=== PATIENT | male | born 1955 | race American Indian/Alaskan Native ===

== ENCOUNTER 2019-08-06 15:12 | Emergency (ER) | payer MEDICARE ==
--- NOTE | 2019-08-06 16:55 | Emergency Department Report ---
HPI - General Chief Complaint: Weakness PUI?: No Time Seen by Provider: 08/06/19 16:34 - HPI HPI: Room 2 The patient is a 63-year-old male present with chief complaint of weakness. The patient states he found himself urinating frequently last night. The patient states when he awakened this morning he felt profoundly weak. Patient admits to taking his hydralazine this morning. EMS was called when they arrived they state the patient was hypotensive to 80/50. Patient was transported to the ED. In the ED the patient is normotensive and states he feels better. Patient denies ever having chest pain shortness of breath melena or hematochezia ED Past Medical Hx - Past Medical History Previous Medical History?: Yes Hx Hypertension: Yes Hx GERD: Yes Additional medical history: SLEEP APNEA - Surgical History Past Surgical History?: No - Family History Family history: no significant - Social History Smoking Status: Current Every Day Smoker (Cigars) Substance Use Type: None (Denies illicit drug use), Alcohol (Occasional) - Medications Home Medications: Home Medications Medication Instructions Recorded Confirmed Last Taken Type Esomeprazole Magnesium [NexIUM] 40 mg PO QDAY #31 capsule. 02/27/15 Unknown Rx HYDROcodone/APAP 10-325 [[place] 1 each PO Q8HR PRN #15 tablet 02/27/15 Unknown Rx 10/325] Lisinopril/Hydrochlorothiazide 1 tab PO QDAY #31 tablet 02/27/15 Unknown Rx [Zestoretic 20-25 mg] Ciprofloxacin HCl [Ciprofloxacin 500 mg PO Q12HR #14 tab 08/06/19 Unknown Rx TAB] ED Review of Systems ROS: Stated complaint: LOW BP Other details as noted in HPI Constitutional: weakness Cardiovascular: denies: chest pain Gastrointestinal: denies: melena, hematochezia Physical Exam - Physical Exam Vital Signs: Vital Signs 08/06/19 08/06/19 15:13 15:59 Temperature 98.2 F Pulse Rate 65 Respiratory 16 18 Rate Blood Pressure 122/50 O2 Sat by Pulse 100 Oximetry Physical Exam: GENERAL: The patient is well-developed well-nourished male lying on stretcher not appearing to be in acute distress. [] HEENT: Normocephalic. Atraumatic. Extraocular motions are intact. Patient has moist mucous membranes. NECK: Supple. Trachea midline CHEST/LUNGS: Clear to auscultation. There is no respiratory distress noted. HEART/CARDIOVASCULAR: Regular. There is no tachycardia. There is no gallop rub or murmur. ABDOMEN: Abdomen is soft. Patient has normal bowel sounds. There is no abdominal distention. SKIN: There is no rash. There is no edema. There is no diaphoresis. NEURO: The patient is awake, alert, and oriented. The patient is cooperative. The patient has no focal neurologic deficits. The patient has normal speech. Cranial nerves II through XII grossly intact MUSCULOSKELETAL: There is no evidence of acute injury. ED Course Vital Signs 08/06/19 08/06/19 15:13 15:59 Temperature 98.2 F Pulse Rate 65 Respiratory 16 18 Rate Blood Pressure 122/50 O2 Sat by Pulse 100 Oximetry ED Medical Decision Making - Lab Data Result diagrams: 08/06/19 16:52 08/06/19 16:52 Laboratory Tests 08/06/19 08/06/19 08/06/19 15:30 16:52 16:52 WBC 13.8 H RBC 5.29 H Hgb 13.6 Hct 42.8 MCV 81 L MCH 26 L MCHC 32 RDW 17.5 H Plt Count 161 Lymph % (Auto) 5.6 L [place] % (Auto) 6.6 Eos % (Auto) 0.2 Baso % (Auto) 0.3 Lymph # 0.8 L [place] # 0.9 H Eos # 0.0 Baso # 0.0 Seg Neutrophils % 87.3 H Seg Neutrophils # 12.1 H Sodium 138 Potassium 3.9 Chloride 98.8 Carbon Dioxide 21 L Anion Gap 22 BUN 11 Creatinine 1.8 H Estimated GFR 46 BUN/Creatinine Ratio 6 Glucose 102 H POC Glucose 128 H Calcium 9.1 Total Bilirubin 0.30 AST 14 ALT 10 Alkaline Phosphatase 87 Total Creatine Kinase 125 CK-MB (CK-2) 3.8 CK-MB (CK-2) Rel Index 3.0 Troponin T 0.013 Total Protein 6.8 Albumin 4.2 Albumin/Globulin Ratio 1.6 TSH Free T4 Urine Color Urine Turbidity Urine pH Ur Specific Allen Urine Protein Urine Glucose (UA) Urine Ketones Urine Blood Urine Nitrite Urine Bilirubin Urine Urobilinogen Ur Leukocyte Esterase Urine WBC (Auto) Urine RBC (Auto) U Epithel Cells (Auto) Urine Mucus 05/30/20 05/30/20 16:52 18:00 WBC RBC Hgb Hct MCV MCH MCHC RDW Plt Count Lymph % (Auto) [place] % (Auto) Eos % (Auto) Baso % (Auto) Lymph # [place] # Eos # Baso # Seg Neutrophils % Seg Neutrophils # Sodium Potassium Chloride Carbon Dioxide Anion Gap BUN Creatinine Estimated GFR BUN/Creatinine Ratio Glucose POC Glucose Calcium Total Bilirubin AST ALT Alkaline Phosphatase Total Creatine Kinase CK-MB (CK-2) CK-MB (CK-2) Rel Index Troponin T Total Protein Albumin Albumin/Globulin Ratio TSH 1.060 Free T4 1.54 H Urine Color Yellow Urine Turbidity Slightly-cloudy Urine pH 8.0 H Ur Specific Allen 1.006 Urine Protein 100 mg/dl Urine Glucose (UA) 50 Urine Ketones Neg Urine Blood Neg Urine Nitrite Neg Urine Bilirubin Neg Urine Urobilinogen < 2.0 Ur Leukocyte Esterase Neg Urine WBC (Auto) 7.0 H Urine RBC (Auto) 1.0 U Epithel Cells (Auto) 1.0 Urine Mucus Few - Differential Diagnosis Orthostatic hypotension, hypothyroidism, symptomatic anemia, electrolyte ab Critical care attestation.: If time is entered above; I have spent that time in minutes in the direct care of this critically ill patient, excluding procedure time. ED Disposition Clinical Impression: UTI (urinary tract infection), Renal insufficiency Disposition: DC- TO HOME OR SELFCARE Is pt being admited?: No Does the pt Need Aspirin: No Condition: Stable Additional Instructions: Return to the emergency department should you develop worsening symptoms, inability to tolerate food or liquids, high fever or any other concerns Prescriptions: Ciprofloxacin HCl [Ciprofloxacin TAB] 500 mg PO Q12HR #14 tab Referrals: [facility] [Provider Group] - 3-5 Days SANDRA JAMA MD [Staff Physician] - 2-3 Days (Dr. Jama is a home management supervisor (kidney doctor). Please follow-up with him for further evaluation of your kidneys) LUÍS VERMA MD [Staff Physician] - 3-5 Days (Dr. Verma is a primary physician. Please follow-up with him to be established as a patient) Time of Disposition: 18:48
[2019-08-06 17:20] LABS: Basophils % (Auto) 0.3 % (0.0-1.8); Eosinophils % (Auto) 0.2 % (0.0-4.3); Hematocrit 42.8 % (35.5-45.6); Hemoglobin 13.6 gm/dl (11.8-15.2); Lymphocytes # (Auto) 0.8 K/mm3 (1.2-5.4); Lymphocytes % (Auto) 5.6 % (13.4-35.0); Mean Corpuscular HGB Conc 32 % (32-34); Mean Corpuscular Volume 81 fl (84-94); Monocytes # (Auto) 0.9 K/mm3 (0.0-0.8); Monocytes % (Auto) 6.6 % (0.0-7.3); Platelet Count 161 K/mm3 (140-440); Red Blood Count 5.29 M/mm3 (3.65-5.03); Red Cell Distribution Width 17.5 % (13.2-15.2)
[2019-08-06 17:29] LABS: Creatine Kinase MB 3.8 ng/mL (0.0-4.0)
[2019-08-06 17:30] LABS: Albumin 4.2 g/dL (3.9-5); Calcium 9.1 mg/dL (8.4-10.2)
[2019-08-06 17:35] LABS: Free T4 (Free Thyroxine) 1.54 ng/dL (0.76-1.46)
[2019-08-06 18:09] VITALS: BP 144/78
[2019-08-06 18:14] LABS: Bilirubin,Urine NEG (Negative); Blood,Urine NEG (Negative); Color,Urine Yellow (Yellow); Mucus,Urine FEW /HPF; Urobilinogen,Urine < 2.0 mg/dL (<2.0)
== END 2019-08-06 19:09 | disposition home or self-care (01) ==
LOC: ED 15:12
DX: N28.9 Disorder of kidney and ureter, unspecified (principal); N39.0 Urinary tract infection, site not specified; I10 Essential (primary) hypertension; K21.9 Gastro-esophageal reflux disease without esophagitis; F17.200 Nicotine dependence, unspecified, uncomplicated; Z88.2 Allergy status to sulfonamides; Z79.899 Other long term (current) drug therapy; Z88.0 Allergy status to penicillin
CPT/HCPCS: 36415; 80053; 81001; 82550; 82553; 82962; 84439; 84443; 84484; 85025; 93005; 99283

== ENCOUNTER 2019-09-27 10:54 | Emergency (ER) | payer MEDICARE ==
[2019-09-27 13:07] LABS: Basophils # (Auto) 0.1 K/mm3 (0.0-0.1); Basophils % (Auto) 1.1 % (0.0-1.8); Eosinophils # (Auto) 0.4 K/mm3 (0.0-0.4); Eosinophils % (Auto) 4.7 % (0.0-4.3); Hematocrit 35.3 % (35.5-45.6); Hemoglobin 11.8 gm/dl (11.8-15.2); Lymphocytes # (Auto) 1.4 K/mm3 (1.2-5.4); Lymphocytes % (Auto) 16.3 % (13.4-35.0); Mean Corpuscular HGB Conc 33 % (32-34); Mean Corpuscular Volume 84 fl (84-94); Monocytes # (Auto) 0.7 K/mm3 (0.0-0.8); Monocytes % (Auto) 7.7 % (0.0-7.3); Platelet Count 204 K/mm3 (140-440); Red Blood Count 4.22 M/mm3 (3.65-5.03); Red Cell Distribution Width 16.4 % (13.2-15.2)
--- NOTE | 2019-09-27 13:26 | Ultrasound Report ---
US testicular doppler comp INDICATION / CLINICAL INFORMATION: testicular pain. COMPARISON: None available. FINDINGS: There is a 2 cm cyst in the very inferior aspect of the right testicle. This appears to be an intrate sticular cyst. Right testicle and right epididymis are otherwise unremarkable Left testicle contains 2 much smaller cysts, the larger measuring 8 mm maximum diameter. Color Doppler imaging shows normal vascular flow in both testicles. There are bilateral hydroceles, m inimal on the right and moderate-sized on the left. Moderate left varicocele is also demonstrated. No abnormal solid testicular mass. IMPRESSION: 1. Bilateral intratesticular cysts, larger on the right. 2. Bilateral hydroceles, minimal on the right and moderate-sized on the left. 3. Small to moderate left varicocele. 4. No solid testicular masses. Signer Name: Dontae Gasca MD Signed: 09/27/2019 1:22 PM Workstation Name: [id number]
[2019-09-27 13:44] LABS: Alanine Aminotransferase 9 units/L (7-56); Albumin 4.2 g/dL (3.9-5); BUN/Creatinine Ratio 12; Blood Urea Nitrogen 15 mg/dL (9-20); Calcium 8.8 mg/dL (8.4-10.2); Hemolysis Index 11
[2019-09-27] MEDS ORDERED: HYDROcodone/ACETAMINOPHEN 5-325 MG TAB PO ONE (18:42)
--- NOTE | 2019-09-27 19:10 | Emergency Department Report ---
ED Abdominal Pain HPI - General Chief Complaint: Medical Clearance Stated Complaint: PAIN/ABD/TESTICLE/RT FOOT PUI?: No Time Seen by Provider: 09/27/19 11:37 Source: patient Mode of arrival: Ambulatory Limitations: No Limitations - History of Present Illness Initial Comments: This is a 64-year-old male presents the ED complaining of scrotum pain that began yesterday. Patient states that he has had pain for about a week now where he had ultrasound that was normal. Patient also complaining of abdominal pain stating that he saw some brown-tinged blood in his stool today. Patient denies any nausea vomiting or diarrhea, fever, chills, chest pain, shortness of breath, dysuria, penile discharge or swelling of the testicles or lesions MD Complaint: abdominal pain Severity scale (0 -10): 10 - Related Data Previous Rx's Medication Instructions Recorded Last Taken Type Esomeprazole Magnesium [NexIUM] 40 mg PO QDAY #31 capsule. 02/27/15 Unknown Rx HYDROcodone/APAP 10-325 [[place] 1 each PO Q8HR PRN #15 tablet 02/27/15 Unknown Rx 10/325] Lisinopril/Hydrochlorothiazide 1 tab PO QDAY #31 tablet 02/27/15 Unknown Rx [Zestoretic 20-25 mg] Ciprofloxacin HCl [Ciprofloxacin 500 mg PO Q12HR #14 tab 08/06/19 Unknown Rx TAB] Acetaminophen/Codeine [Tylenol 1 tab PO Q6H #10 tab 09/27/19 Unknown Rx /Codeine # 3 tab] Allergies Allergy/AdvReac Type Severity Reaction Status Date / Time Penicillins AdvReac Unknown Verified 06/30/14 07:13 Sulfa (Sulfonamide AdvReac Unknown Verified 06/30/14 07:13 Antibiotics) ED Review of Systems ROS: Stated complaint: PAIN/ABD/TESTICLE/RT FOOT Other details as noted in HPI Comment: All other systems reviewed and negative ED Past Medical Hx - Past Medical History Previous Medical History?: Yes Hx Hypertension: Yes Hx GERD: Yes Additional medical history: SLEEP APNEA - Surgical History Past Surgical History?: No - Social History Smoking Status: Current Every Day Smoker (Cigars) Substance Use Type: None (Denies illicit drug use), Alcohol (Occasional) - Medications Home Medications: Home Medications Medication Instructions Recorded Confirmed Last Taken Type Esomeprazole Magnesium [NexIUM] 40 mg PO QDAY #31 capsule. 02/27/15 Unknown Rx HYDROcodone/APAP 10-325 [[place] 1 each PO Q8HR PRN #15 tablet 02/27/15 Unknown Rx 10/325] Lisinopril/Hydrochlorothiazide 1 tab PO QDAY #31 tablet 02/27/15 Unknown Rx [Zestoretic 20-25 mg] Ciprofloxacin HCl [Ciprofloxacin 500 mg PO Q12HR #14 tab 08/06/19 Unknown Rx TAB] Acetaminophen/Codeine [Tylenol 1 tab PO Q6H #10 tab 09/27/19 Unknown Rx /Codeine # 3 tab] ED Physical Exam - General Limitations: No Limitations General appearance: alert, in no apparent distress - Head Head exam: Present: atraumatic, normocephalic - Eye Eye exam: Present: normal appearance - ENT ENT exam: Present: mucous membranes moist - Neck Neck exam: Present: normal inspection - Respiratory Respiratory exam: Present: normal lung sounds bilaterally. Absent: respiratory distress - Cardiovascular Cardiovascular Exam: Present: regular rate, normal rhythm. Absent: systolic m urmur, diastolic murmur, rubs, gallop - GI/Abdominal GI/Abdominal exam: Present: soft, normal bowel sounds. Absent: distended, tenderness, guarding, mass - Rectal Rectal exam: Present: deferred, normal inspection, normal rectal tone, heme (-) stool - exam: Present: testicular tenderness (Mild bilateral). Absent: urethral discharge, scrotal swelling External exam: Absent: lesions, bleeding - Extremities Exam Extremities exam: Present: normal inspection, full ROM - Back Exam Back exam: Present: normal inspection - Neurological Exam Neurological exam: Present: alert, oriented X3 - Psychiatric Psychiatric exam: Present: normal affect, normal mood - Skin Skin exam: Present: warm, dry, intact, normal color. Absent: rash ED Medical Decision Making - Lab Data Result diagrams: 09/27/19 11:57 09/27/19 11:57 Laboratory Last Values WBC 8.8 K/mm3 (4.5-11.0) 09/27/19 11:57 RBC 4.22 M/mm3 (3.65-5.03) 09/27/19 11:57 Hgb 11.8 gm/dl (11.8-15.2) 09/27/19 11:57 Hct 35.3 % (35.5-45.6) L 09/27/19 11:57 MCV 84 fl (84-94) 09/27/19 11:57 MCH 28 pg (28-32) 09/27/19 11:57 MCHC 33 % (32-34) 09/27/19 11:57 RDW 16.4 % (13.2-15.2) H 09/27/19 11:57 Plt Count 204 K/mm3 (140-440) 09/27/19 11:57 Lymph % (Auto) 16.3 % (13.4-35.0) 09/27/19 11:57 [place] % (Auto) 7.7 % (0.0-7.3) H 09/27/19 11:57 Eos % (Auto) 4.7 % (0.0-4.3) H 09/27/19 11:57 Baso % (Auto) 1.1 % (0.0-1.8) 09/27/19 11:57 Lymph # 1.4 K/mm3 (1.2-5.4) 09/27/19 11:57 [place] # 0.7 K/mm3 (0.0-0.8) 09/27/19 11:57 Eos # 0.4 K/mm3 (0.0-0.4) 09/27/19 11:57 Baso # 0.1 K/mm3 (0.0-0.1) 09/27/19 11:57 Seg Neutrophils % 70.2 % (40.0-70.0) H 09/27/19 11:57 Seg Neutrophils # 6.1 K/mm3 (1.8-7.7) 09/27/19 11:57 PT 12.8 Sec. (12.2-14.9) 09/27/19 18:48 INR 0.94 (0.87-1.13) 09/27/19 18:48 APTT 29.9 Sec. (24.2-36.6) 09/27/19 18:48 Sodium 142 mmol/L (137-145) 09/27/19 11:57 Potassium 4.2 mmol/L (3.6-5.0) 09/27/19 11:57 Chloride 106.3 mmol/L (98-107) 09/27/19 11:57 Carbon Dioxide 22 mmol/L (22-30) 09/27/19 11:57 Anion Gap 18 mmol/L 09/27/19 11:57 BUN 15 mg/dL (9-20) 09/27/19 11:57 Creatinine 1.3 mg/dL (0.8-1.5) 09/27/19 11:57 Estimated GFR > 60 ml/min 09/27/19 11:57 BUN/Creatinine Ratio 12 % 09/27/19 11:57 Glucose 97 mg/dL (75-100) 09/27/19 11:57 Calcium 8.8 mg/dL (8.4-10.2) 09/27/19 11:57 Total Bilirubin 0.30 mg/dL (0.1-1.2) 09/27/19 11:57 AST 10 units/L (5-40) 09/27/19 11:57 ALT 9 units/L (7-56) 09/27/19 11:57 Alkaline Phosphatase 90 units/L (35-129) 09/27/19 11:57 Total Protein 6.6 g/dL (6.3-8.2) 09/27/19 11:57 Albumin 4.2 g/dL (3.9-5) 09/27/19 11:57 Albumin/Globulin Ratio 1.8 % 09/27/19 11:57 Urine Color Straw (Yellow) 09/27/19 18:42 Urine Turbidity Clear (Clear) 09/27/19 18:42 Urine pH 7.0 (5.0-7.0) 09/27/19 18:42 Ur Specific Jet 1.011 (1.003-1.030) 09/27/19 18:42 Urine Protein <15 mg/dl mg/dL (Negative) 09/27/19 18:42 Urine Glucose (UA) Neg mg/dL (Negative) 09/27/19 18:42 Urine Ketones Neg mg/dL (Negative) 09/27/19 18:42 Urine Blood Neg (Negative) 09/27/19 18:42 Urine Nitrite Neg (Negative) 09/27/19 18:42 Urine Bilirubin Neg (Negative) 09/27/19 18:42 Urine Urobilinogen < 2.0 mg/dL (<2.0) 09/27/19 18:42 Ur Leukocyte Esterase Neg (Negative) 07/21/20 18:42 Urine WBC (Auto) < 1.0 /HPF (0.0-6.0) 09/27/19 18:42 Urine RBC (Auto) 2.0 /HPF (0.0-6.0) 09/27/19 18:42 - Radiology Data Radiology results: report reviewed, image reviewed ABDOMEN 2 VIEW(S) INDICATION / CLINICAL INFORMATION: MAIN. COMPARISON: None available. FINDINGS: TUBES / LINES: None. BOWEL GAS PATTERN: Scattered colonic stool. No significant bowel distention or free air. ADDITIONAL FINDINGS: No significant additional findings. IMPRESSION: No significant abnormality. Signer Name: Mohan Chowdhury MD Signed: 09/27/2019 8:02 PM Workstation Name: [id number] Transcribed By: ES Dictated By: Mohan Chowdhury MD Electronically Authenticated By: Mohan Chowdhury MD Signed Date/Time: 09/27/192001 US testicular doppler comp INDICATION / CLINICAL INFORMATION: testicular pain. COMPARISON: None available. FINDINGS: There is a 2 cm cyst in the very inferior aspect of the right testicle. This appears to be an intratesticular cyst. Right testicle and right epididymis are otherwise unremarkable Left testicle contains 2 much smaller cysts, the larger measuring 8 mm maximum diameter. Color Doppler imaging shows normal vascular flow in both testicles. There are bilateral hydroceles, minimal on the right and moderate-sized on the left. Moderate left varicocele is also demonstrated. No abnormal solid testicular mass. IMPRESSION: 1. Bilateral intratesticular cysts, larger on the right. 2. Bilateral hydroceles, minimal on the right and moderate-sized on the left. 3. Small to moderate left varicocele. 4. No solid testicular masses. Signer Name: Dontae Gasca MD Signed: 09/27/2019 1:22 PM Workstation Name: [id number] Transcribed By: TM Dictated By: Dontae Gasca MD Electronically Authenticated By: Dontae Gasca MD Signed Date/Time: 09/27/19 1322 - Medical Decision Making This 64-year-old male presents with an episode of blood in stool. Patient also complained of testicular pain most likely secondary to testicular cysts which ar e benign. All labs are within normal limits urinalysis negative, testicular ultrasound see report above. Abdominal x-ray sounds shows no abnormal findings. I discussed all findings with the patient. Patient received pain medication in the ED. I discussed with patient need to follow-up with GI as well as urology. Referrals given to patient. Vital signs are stable patient is in no acute discharge Critical care attestation.: If time is entered above; I have spent that time in minutes in the direct care of this critically ill patient, excluding procedure time. ED Disposition Clinical Impression: Benign cyst of both testicles, Blood in stool, Hydrocele in adult Disposition: DC-01 TO HOME OR SELFCARE Is pt being admited?: No Does the pt Need Aspirin: No Condition: Stable Instructions: Hydrocele (ED), Testicle Pain (ED), Colonoscopy (GEN) Additional Instructions: Make sure to follow up with the primary care physician as discussed. Follow-up with urologist as well as GI Take all your medications as you've been prescribed. If you have any worsening symptoms or develop new symptoms please return to ED immediately. Prescriptions: Acetaminophen/Codeine [Tylenol /Codeine # 3 tab] 1 tab PO Q6H #10 tab Referrals: PRIMARY CAREMD [Primary Care Provider] - 3-5 Days [facility] [Outside] - 3-5 Days [facility] [Provider Group] - 3-5 Days [facility] [Provider Group] - 3-5 Days OWEN SIMON MD [Staff Physician] - 3-5 Days [facility] [Provider Group] - 3-5 Days Forms: Work/School Release Form(ED) Time of Disposition: 20:59
[2019-09-27 19:24] LABS: INR 0.94 (0.87-1.13)
[2019-09-27 19:25] LABS: Partial Thromboplastin Time 29.9 Sec. (24.2-36.6)
[2019-09-27 19:32] LABS: Bilirubin,Urine NEG (Negative); Blood,Urine NEG (Negative); Color,Urine Straw (Yellow); Protein,Urine <15 mg/dL mg/dL (Negative); Urobilinogen,Urine < 2.0 mg/dL (<2.0)
[2019-09-27 19:37] LABS: WBC,Urine < 1.0 /HPF (0.0-6.0)
--- NOTE | 2019-09-27 20:07 | XRay Report ---
ABDOMEN 2 VIEW(S) INDICATION / CLINICAL INFORMATION: MAIN. COMPARISON: None available. FINDINGS: TUBES / LINES: None. BOWEL GAS PATTERN: Scattered colonic stool. No significant bowel distention or free air. ADDITIONAL FINDINGS: No significant additional findings. IMPRESSION: No significant abnormality. Signer Name: Mohan Chowdhury MD Signed: 09/27/2019 8:02 PM Workstation Name: [id number]
[2019-09-27 21:14] VITALS: BP 115/78
== END 2019-09-27 21:14 | disposition home or self-care (01) ==
LOC: ED 10:54
DX: N44.2 Benign cyst of testis (principal); K92.1 Melena; N43.3 Hydrocele, unspecified; I10 Essential (primary) hypertension; K21.9 Gastro-esophageal reflux disease without esophagitis; F17.200 Nicotine dependence, unspecified, uncomplicated; Z79.899 Other long term (current) drug therapy; Z88.0 Allergy status to penicillin; Z88.2 Allergy status to sulfonamides
CPT/HCPCS: 36415; 74019; 80053; 81001; 85025; 85610; 85730; 93975

== ENCOUNTER 2020-05-12 08:45 | Emergency (ER) | payer MEDICARE, OTHER ==
[2020-05-12] MEDS ORDERED: SODIUM CHLORIDE 0.9% 500 ML 500 ML IV ONE (08:51)
[2020-05-12] MEDS ORDERED: PANTOPRAZOLE 40 MG INJ IV ONE (08:52)
[2020-05-12] MEDS ORDERED: SODIUM CHLORIDE 0.9% 1000 ML 1,000 ML IV ONE (08:53)
--- NOTE | 2020-05-12 09:32 | Emergency Department Report ---
ED GI Bleed HPI - General Stated complaint: POSS GI BLEED Time Seen by Provider: 05/12/20 08:51 - History of Present Illness Initial comments: 64-year old male with conspicuous signs of upper GI bleeding. Medics notified the hospital of his findings in the field. They found the patient to be diaphoretic without palpable radial pulses but able to answer questions. According to medics he had "2 to 3 L of coffee grounds and blood on the floor." They initiated to antecubital IVs and stated they initiated a 1 L bolus. However, neither IV was ultimately functional per the nurse. I requested O- blood on the basis of the above history. This emergency transfusion was started shortly after the patient's arrival. The nurse stated that the ID in the right antecubital was infiltrating upon transfusion. He initiated 2 additional IVs distal to these upper extremity sites. Transfusion was successfully in progress shortly thereafter. I assisted the staff and drawing blood. I placed an 18- gauge Y site in the patient's right external jugular vein without difficulty. At the time my initial encounter, the patient was complaining of some diffuse bu t apparently mild abdominal pain. He is rather poor historian. He initially states he has never been transfused before and has no history of upper GI bleeding. However I obtain his prior medical history from Dr. Hawkins. This reveals an admission 05/2018 for hypoxic respiratory failure associated with gastric ulcer x2, esophageal erosion, aspiration and sepsis. Patient did not have surgical intervention at that time. All the patient could tell me is that he was in a "acute coma" for 19 days. Additionally, the patient tells me that he has been having normal bowel movements since the onset of this GI bleeding which he states was last Thursday. However, upon further questioning he admits that the stool has been black. complaint: coffee ground emesis, melena -: days(s) Radiation: epigastric (And diffuse) Quality: other (Aching) Consistency: constant Improves with: none Worsens with: none Context: history of GI bleed Associated Symptoms: denies other symptoms, abdominal pain, nausea, vomiting, shortness of breath Treatments Prior to Arrival: OTC meds (Nexium) - Related Data Home Medications Medication Instructions Recorded Confirmed Last Taken Meloxicam [Mobic] 15 mg PO QDAY 05/12/20 05/12/20 Unknown amLODIPine [Norvasc] 10 mg PO DAILY 05/12/20 05/12/20 Unknown traZODone [Desyrel] 100 mg PO QHS 05/12/20 05/12/20 Unknown Allergies Allergy/AdvReac Type Severity Reaction Status Date / Time Penicillins AdvReac Unknown Verified 06/30/14 07:13 Sulfa (Sulfonamide AdvReac Unknown Verified 06/30/14 07:13 Antibiotics) ED Review of Systems ROS: Stated complaint: POSS GI BLEED Other details as noted in HPI Comment: Unobtainable due to pts medical conditions (Very poor historian, hypotensive patient) ED Past Medical Hx - Past Medical History Hx Hypertension: Yes Hx GERD: Yes Additional medical history: SLEEP APNEA - Social History Smoking Status: Current Every Day Smoker (Cigars) Substance Use Type: None (Denies illicit drug use), Alcohol (Occasional) - Medications Home Medications: Home Medications Medication Instructions Recorded Confirmed Last Taken Type Meloxicam [Mobic] 15 mg PO QDAY 05/12/20 05/12/20 Unknown History amLODIPine [Norvasc] 10 mg PO DAILY 05/12/20 05/12/20 Unknown History traZODone [Desyrel] 100 mg PO QHS 05/12/20 05/12/20 Unknown History ED Physical Exam - General Limitations: Other (Hypotension) General appearance: other (Diaphoretic) - Head Head exam: Present: atraumatic, normocephalic - Eye Eye exam: Present: normal appearance, other (Conjunctiva are somewhat pale). Absent: scleral icterus - ENT ENT exam: Present: mucous membranes moist - Neck Neck exam: Present: normal inspection. Absent: tenderness, meningismus - Respiratory Respiratory exam: Present: normal lung sounds bilaterally. Absent: respiratory distress - Cardiovascular Cardiovascular Exam: Present: regular rate, normal rhythm. Absent: systolic murmur, diastolic murmur, rubs, gallop - GI/Abdominal GI/Abdominal exam: Present: soft, normal bowel sounds, other (Obese). Absent: distended, tenderness, guarding, rebound, rigid, organomegaly (Not apparent) - Rectal Rectal exam: Present: deferred - Extremities Exam Extremities exam: Present: normal inspection - Back Exam Back exam: Present: normal inspection - Neurological Exam Neurological exam: Present: alert, oriented X3, CN II-XII intact (As tested). Absent: motor sensory deficit - Psychiatric Psychiatric exam: Present: normal affect, normal mood - Skin Skin exam: Present: warm, intact, normal color, diaphoretic. Absent: rash ED Course Vital Signs 05/12/20 05/12/20 05/12/20 08:52 09:01 09:15 Temperature Pulse Rate 87 86 83 Respiratory 18 20 13 Rate Blood Pressure 75/46 75/46 O2 Sat by Pulse 99 100 Oximetry 05/12/20 05/12/20 05/12/20 09:30 09:45 10:01 Temperature 97.3 F L Pulse Rate 76 76 67 Respiratory 17 20 20 Rate Blood Pressure 78/32 84/52 78/25 O2 Sat by Pulse 100 98 98 Oximetry 05/12/20 10:15 Temperature Pulse Rate 72 Respiratory 17 Rate Blood Pressure 102/42 O2 Sat by Pulse 98 Oximetry - Reevaluation(s) Reevaluation #1: Emergency release blood. Fluid resuscitation. Spoke to gastroenterology shortly after patient arrival. Dr. Hawkins confirmed the unavailability of GI lab services over the weekend. He recommended transfer. He was at [facility] at the time of our conversation. He stated that he would be willing to see the patient there. Consequently, we are attempting to transfer the patient to [facility] after stabilization. 05/12/20 09:51 Reevaluation #2: Patient placed on a Protonix drip upon arrival and given a bolus. His hemog lobin was noted to be 9.3 pretransfusion. He has remained somewhat hypotensive. Additional volume bolus is in progress. His heart rate is in the 70s. At the time of my recent reassessment his diaphoresis had resolved. He is on 2 L nasal cannula, supplemental oxygen. His sat is 97. He was not prior hypoxic. He is oriented x4. He does have some persistent abdominal discomfort but not significant pain at this point. His abdomen remains quite benign. 05/12/20 10:08 Reevaluation #3: I initially attempted transfer to [facility] as the patient was there before. H owever, I was informed that they had no ICU beds. I proceeded with transfer through the [facility] transfer center. I spoke with Dr.Messalum BLEVINS who was happy to consult. I then discussed the case with the ICU physician, Dr. Mcdonald who accepted the transfer. Neither physician recommended pressors. The patient will be continued under frequent blood pressure and standard monitoring. Should his blood pressure deteriorate, we will initiate pressors. Transfer is in progress. 05/12/20 10:29 Reevaluation #4: Patient has had no signs of recurrent GI bleeding. He tolerated the transfusion well. 05/12/20 10:33 Reevaluation #5: Last BUN/creatinine 07/26 was noted to be 11 over 1.8 05/12/20 10:34 - EJ/Peripheral Line Neck R Time Out Performed: No Indications: multiple IV sites needed Skin Cleansed in Sterile Fashion: Yes Size: 18 Dressing Placed: Tegaderm Patient Tolerated Procedure: no complications Additional Comments: Single puncture. ED Medical Decision Making - Lab Data Result diagrams: 05/12/20 09:07 05/12/20 09:07 Laboratory Results - last 24 hr 05/12/20 05/12/20 05/12/20 09:07 09:07 09:07 WBC 13.2 H RBC 3.20 L Hgb 9.3 L Hct 27.8 L MCV 87 MCH 29 MCHC 34 RDW 14.5 Plt Count 195 Lymph % (Auto) 7.9 L [place] % (Auto) 5.5 Eos % (Auto) 0.0 Baso % (Auto) 0.3 Lymph # (Auto) 1.0 L [place] # (Auto) 0.7 Eos # (Auto) 0.0 Baso # (Auto) 0.0 Seg Neutrophils % 86.3 H Seg Neutrophils # 11.4 H Sodium 139 Potassium 4.1 Chloride 101.1 Carbon Dioxide 24 Anion Gap 18 BUN 66 H Creatinine 2.4 H Estimated GFR 33 BUN/Creatinine Ratio 28 Glucose 120 H Calcium 8.5 CK-MB (CK-2) 1.6 Troponin T < 0.010 Blood Type Crossmatch 05/12/20 09:23 WBC RBC Hgb Hct MCV MCH MCHC RDW Plt Count Lymph % (Auto) [place] % (Auto) Eos % (Auto) Baso % (Auto) Lymph # (Auto) [place] # (Auto) Eos # (Auto) Baso # (Auto) Seg Neutrophils % Seg Neutrophils # Sodium Potassium Chloride Carbon Dioxide Anion Gap BUN Creatinine Estimated GFR BUN/Creatinine Ratio Glucose Calcium CK-MB (CK-2) Troponin T Blood Type O POSITIVE Crossmatch See Detail - EKG Data -: EKG Interpreted by Me EKG shows normal: sinus rhythm, axis (Left axis/left anterior fascicular block), intervals, QRS complexes, ST-T waves Rate: normal - EKG Data Interpretation: nonspecific ST-T wave yonathan - Radiology Data Radiology results: report reviewed, image reviewed (Cardiac silhouette normal, no acute process noted) Critical Care Time: Yes Critical care time in (mins) excluding proc time.: 120 Critical care attestation.: If time is entered above; I have spent that time in minutes in the direct care of this critically ill patient, excluding procedure time. ED Disposition Clinical Impression: Upper GI bleeding, Acute kidney injury superimposed on chronic kidney disease Hypotension Qualifiers: Hypotension type: unspecified hypotension type Qualified Code(s): I95.9 - Hypotension, unspecified Disposition: DC/TX-70 ANOTHER TYPE HLTHCARE Is pt being admited?: No Does the pt Need Aspirin: No Condition: Stable
[2020-05-12 09:48] LABS: Basophils % (Auto) 0.3 % (0.0-1.8); Hematocrit 27.8 % (35.5-45.6); Hemoglobin 9.3 gm/dl (11.8-15.2); Lymphocytes % (Auto) 7.9 % (13.4-35.0); Mean Corpuscular HGB Conc 34 % (32-34); Mean Corpuscular Volume 87 fl (84-94); Monocytes # (Auto) 0.7 K/mm3 (0.0-0.8); Monocytes % (Auto) 5.5 % (0.0-7.3); Platelet Count 195 K/mm3 (140-440); Red Cell Distribution Width 14.5 % (13.2-15.2)
[2020-05-12] MEDS ORDERED: PANTOPRAZOLE 80 MG in SODIUM CHLORIDE 0.9% 100 ML IV SCH (10:00)
[2020-05-12 10:07] LABS: Calcium 8.5 mg/dL (8.4-10.2); Creatine Kinase MB 1.6 ng/mL (0.0-4.0)
[2020-05-12 10:09] LABS: Alanine Aminotransferase 7 units/L (7-56); Albumin 3.2 g/dL (3.9-5)
[2020-05-12 10:10] LABS: Bilirubin,Direct < 0.2 mg/dL (0-0.2)
--- NOTE | 2020-05-12 10:13 | XRay Report ---
CHEST 1 VIEW INDICATION: hypotension. COMPARISON: None FINDINGS: SUPPORT DEVICES: None. HEART: Within normal limits. LUNGS/PLEURA: No acute air space or interstitial disease. ADDITIONAL FINDINGS: None. IMPRESSION: 1. No acute findings. Signer Name: Yash Ramos MD Signed: 05/12/2020 10:08 AM Workstation Name: [email or web address] [id number]
[2020-05-12 10:52] LABS: INR 1.12 (0.87-1.13); Partial Thromboplastin Time 29.3 Sec. (24.2-36.6)
[2020-05-12 14:47] LABS: Basophils # (Auto) 0.1 K/mm3 (0.0-0.1); Basophils % (Auto) 0.5 % (0.0-1.8); Eosinophils % (Auto) 0.1 % (0.0-4.3); Hematocrit 31.7 % (35.5-45.6); Hemoglobin 10.8 gm/dl (11.8-15.2); Lymphocytes # (Auto) 1.7 K/mm3 (1.2-5.4); Lymphocytes % (Auto) 9.1 % (13.4-35.0); Mean Corpuscular HGB Conc 34 % (32-34); Mean Corpuscular Volume 88 fl (84-94); Monocytes # (Auto) 1.2 K/mm3 (0.0-0.8); Monocytes % (Auto) 6.3 % (0.0-7.3); Platelet Count 177 K/mm3 (140-440); Red Blood Count 3.59 M/mm3 (3.65-5.03); Red Cell Distribution Width 14.2 % (13.2-15.2)
[2020-05-12 15:40] VITALS: BP 124/52
== END 2020-05-12 16:52 | disposition other institution (70) ==
LOC: ED 08:45
DX: N17.9 Acute kidney failure, unspecified (principal); K92.2 Gastrointestinal hemorrhage, unspecified; I95.9 Hypotension, unspecified; I10 Essential (primary) hypertension; K21.9 Gastro-esophageal reflux disease without esophagitis; F17.200 Nicotine dependence, unspecified, uncomplicated; Z79.899 Other long term (current) drug therapy; Z88.0 Allergy status to penicillin; Z88.2 Allergy status to sulfonamides
CPT/HCPCS: 36415; 36430; 36556; 71045; 80048; 80076; 82550; 82553; 83690; 83735; 84484; 85025; 85610; 85730; 86850; 86900; 86901; 86920; 93005; 96361; 96365; 96366; 96376; 99285; C9113; J7030; J7040; P9016

== ENCOUNTER 2020-05-30 09:19 | Observation (INO) | payer MEDICARE ==
[2020-05-30] MEDS ORDERED: SODIUM CHLORIDE 0.9% 1000 ML 1,000 ML IV ONE (09:59)
--- NOTE | 2020-05-30 10:05 | Emergency Department Report ---
ED General Adult HPI - General Chief complaint: Syncope Stated complaint: ABD PAIN, WEAKNESS Time Seen by Provider: 05/30/20 09:48 Source: patient, EMS Mode of arrival: Stretcher Limitations: No Limitations - History of Present Illness Initial comments: This is a 64-year-old man who I saw at the beginning of the month after an upper GI bleed at home. He was transferred to [facility] as we had no GI lab services available: Initial comments: 64-year old male with conspicuous signs of upper GI bleeding. Medics notified the hospital of his findings in the field. They found the patient to be diaphoretic without palpable radial pulses but able to answer questions. According to medics he had "2 to 3 L of coffee grounds and blood on the floor." They initiated to antecubital IVs and stated they initiated a 1 L bolus. However, neither IV was ultimately functional per the nurse. I requested O- blood on the basis of the above history. This emergency transfusion was started shortly after the patient's arrival. The nurse stated that the ID in the right antecubital was infiltrating upon transfusion. He initiated 2 additional IVs distal to these upper extremity sites. Transfusion was successfully in progress shortly thereafter. I assisted the staff and drawing blood. I placed an 18- gauge Y site in the patient's right external jugular vein without difficulty. At the time my initial encounter, the patient was complaining of some diffuse but apparently mild abdominal pain. He is rather poor historian. He initially states he has never been transfused before and has no history of upper GI bleeding. However I obtain his prior medical history from Dr. Hawkins. This reveals an admission 05/2018 for hypoxic respiratory failure associated with gastric ulcer x2, esophageal erosion, aspiration and sepsis. Patient did not have surgical intervention at that time. All the patient could tell me is that he was in a "acute coma" for 19 days. Additionally, the patient tells me that he has been having normal bowel movements since the onset of this GI bleeding which he states was last Thursday. However, upon further questioning he admits that the stool has been black. Patient states that he was at [facility] for about 4 to 5 days. He was diagnosed with gastritis on endoscopy. He states that he has had recurrent what he describes right upper and right lower quadrant pain. He states in 2019 he had a colonoscopy with the removal of 2 polyps. He did have a prior syncopal episode with GI bleeding. However, today he said no signs of GI bleeding at all. He states his stool was normal this morning. He states everything was fine when he was in the primary care physician's office until "I took my blood pressure medicine". He subsequently passed out. He did not hurt himself. He has not been vomiting. -: Sudden Location: abdomen Radiation: non-radiation Severity scale (0 -10): 0 Quality: aching Consistency: intermittent Improves with: none Worsens with: none Associated Symptoms: denies other symptoms, syncope Treatments Prior to Arrival: none (An EKG was obtained in the primary care office which did show infero-lateral T wave inversions, no STEMI) - Related Data Home Medications Medication Instructions Recorded Confirmed Last Taken Meloxicam [Mobic] 15 mg PO QDAY 05/12/20 05/12/20 Unknown amLODIPine [Norvasc] 10 mg PO DAILY 05/12/20 05/12/20 Unknown traZODone [Desyrel] 100 mg PO QHS 05/12/20 05/12/20 Unknown Allergies Allergy/AdvReac Type Severity Reaction Status Date / Time Penicillins AdvReac Unknown Verified 06/30/14 07:13 Sulfa (Sulfonamide AdvReac Unknown Verified 06/30/14 07:13 Antibiotics) ED Review of Systems ROS: Stated complaint: ABD PAIN, WEAKNESS Other details as noted in HPI Constitutional: denies: chills, fever Eyes: denies: eye pain, eye discharge, vision change ENT: denies: ear pain, throat pain Respiratory: denies: cough, shortness of breath, wheezing Cardiovascular: denies: chest pain, palpitations Endocrine: no symptoms reported Gastrointestinal: abdominal pain (States he has been having persistent abdominal pain sectioning the right upper and lower quadrant.). denies: nausea, vomiting, diarrhea Genitourinary: denies: urgency, dysuria Musculoskeletal: denies: back pain, joint swelling, arthralgia Skin: denies: rash, lesions Neurological: denies: headache, weakness, paresthesias Psychiatric: denies: anxiety, depression Hematological/Lymphatic: denies: easy bleeding, easy bruising ED Past Medical Hx - Past Medical History Hx Hypertension: Yes Hx GERD: Yes Additional medical history: SLEEP APNEA. Several episodes of GI bleeding with prior transfusion - Surgical History Past Surgical History?: No - Social History Smoking Status: Current Every Day Smoker Substance Use Type: None - Medications Home Medications: Home Medications Medication Instructions Recorded Confirmed Last Taken Type Meloxicam [Mobic] 15 mg PO QDAY 05/12/20 05/12/20 Unknown History amLODIPine [Norvasc] 10 mg PO DAILY 05/12/20 05/12/20 Unknown History traZODone [Desyrel] 100 mg PO QHS 05/12/20 05/12/20 Unknown History ED Physical Exam - General Limitations: No Limitations General appearance: alert, in no apparent distress - Head Head exam: Present: atraumatic, normocephalic - Eye Eye exam: Present: normal appearance. Absent: scleral icterus - ENT ENT exam: Present: mucous membranes moist - Neck Neck exam: Present: normal inspection - Respiratory Respiratory exam: Present: normal lung sounds bilaterally. Absent: respiratory distress - Cardiovascular Cardiovascular Exam: Present: regular rate, normal rhythm. Absent: systolic murmur, diastolic murmur, rubs, gallop - GI/Abdominal GI/Abdominal exam: Present: soft, tenderness (Right upper and lower quadrant), guarding (Some voluntary), normal bowel sounds, organomegaly (Question hepatomegaly). Absent: distended, rebound, rigid - Rectal Rectal exam: Present: deferred - Extremities Exam Extremities exam: Present: normal inspection - Back Exam Back exam: Present: normal inspection - Neurological Exam Neurological exam: Present: alert, oriented X3, CN II-XII intact. Absent: motor sensory deficit - Psychiatric Psychiatric exam: Present: normal affect, normal mood - Skin Skin exam: Present: warm, dry, intact, normal color. Absent: rash ED Course Vital Signs 05/30/20 05/30/20 05/30/20 09:32 09:46 10:15 Temperature 98.7 F Pulse Rate 64 73 Respiratory 20 18 16 Rate Blood Pressure 110/68 121/57 Blood Pressure 110/68 [Left] O2 Sat by Pulse 97 98 100 Oximetry 05/30/20 05/30/20 05/30/20 10:31 10:45 11:01 Temperature Pulse Rate 69 66 67 Respiratory 15 15 11 L Rate Blood Pressure 121/57 121/57 121/57 Blood Pressure [Left] O2 Sat by Pulse 100 94 100 Oximetry 05/30/20 05/30/20 11:15 11:31 Temperature Pulse Rate 72 68 Respiratory 11 L 15 Rate Blood Pressure 136/73 136/73 Blood Pressure [Left] O2 Sat by Pulse 100 100 Oximetry - Reevaluation(s) Reevaluation #1: Discussed with Dr. Del Rosario. Patient will be admitted for further care and evalu ation by the hospitalist service. 05/30/20 13:10 ED Medical Decision Making - Lab Data Result diagrams: 05/30/20 10:05 05/30/20 10:05 Laboratory Results - last 24 hr 05/30/20 05/30/20 05/30/20 10:05 10:05 10:05 WBC 10.0 RBC 3.56 L Hgb 10.2 L Hct 31.2 L MCV 88 MCH 29 MCHC 33 RDW 14.1 Plt Count 271 Lymph % (Auto) 6.9 L [place] % (Auto) 4.9 Eos % (Auto) 1.1 Baso % (Auto) 0.4 Lymph # (Auto) 0.7 L [place] # (Auto) 0.5 Eos # (Auto) 0.1 Baso # (Auto) 0.0 Seg Neutrophils % 86.7 H Seg Neutrophils # 8.7 H PT INR APTT 23.2 L Sodium 135 L Potassium 4.1 Chloride 102.8 Carbon Dioxide 21 L Anion Gap 15 BUN 15 Creatinine 1.6 H Estimated GFR 53 BUN/Creatinine Ratio 9 Glucose 85 Calcium 8.5 Magnesium Total Bilirubin 0.20 Direct Bilirubin < 0.2 AST 13 ALT 11 Alkaline Phosphatase 67 Total Creatine Kinase CK-MB (CK-2) CK-MB (CK-2) Rel Index Troponin T NT-Pro-B Natriuret Pep Total Protein 6.1 L Albumin 3.6 L Albumin/Globulin Ratio 1.4 Lipase 19 Blood Type Antibody Screen 05/30/20 05/30/20 05/30/20 10:05 10:05 10:10 WBC RBC Hgb Hct MCV MCH MCHC RDW Plt Count Lymph % (Auto) [place] % (Auto) Eos % (Auto) Baso % (Auto) Lymph # (Auto) [place] # (Auto) Eos # (Auto) Baso # (Auto) Seg Neutrophils % Seg Neutrophils # PT 12.1 L INR 0.91 APTT Sodium Potassium Chloride Carbon Dioxide Anion Gap BUN Creatinine Estimated GFR BUN/Creatinine Ratio Glucose Calcium Magnesium 2.00 Total Bilirubin Direct Bilirubin AST ALT Alkaline Phosphatase Total Creatine Kinase 77 CK-MB (CK-2) 2.8 CK-MB (CK-2) Rel Index 3.6 Troponin T < 0.010 NT-Pro-B Natriuret Pep 663.8 Total Protein Albumin Albumin/Globulin Ratio Lipase Blood Type O POSITIVE Antibody Screen Negative - EKG Data -: EKG Interpreted by Me EKG shows normal: sinus rhythm, axis, intervals, QRS complexes, ST-T waves Rate: normal - EKG Data Interpretation: nonspecific ST-T wave yonathan (Inferolateral flipped T waves second EKG improved from [facility] office) - Radiology Data Radiology results: report reviewed (Diverticulosis, no acute inflammatory process) Critical care attestation.: If time is entered above; I have spent that time in minutes in the direct care of this critically ill patient, excluding procedure time. ED Disposition Clinical Impression: Autonomic dysfunction, Hypotension due to medication, Abnormal EKG Syncope Qualifiers: Syncope type: unspecified Qualified Code(s): R55 - Syncope and collapse Abdominal pain Qualifiers: Abdominal location: unspecified location Qualified Code(s): R10.9 - Unspecified abdominal pain Anemia Qualifiers: Anemia type: iron deficiency Iron deficiency anemia type: chronic blood loss Qualified Code(s): D50.0 - Iron deficiency anemia secondary to blood loss (chronic) Disposition: DC-09 OP ADMIT IP TO THIS HOSP Is pt being admited?: Yes Does the pt Need Aspirin: No (We will hold secondary to history of GI bleeding) Condition: Stable Instructions: Syncope (ED) Referrals: PRIMARY CARE, [Referring] - 3-5 Days Time of Disposition: 13:36
[2020-05-30 10:32] LABS: Basophils % (Auto) 0.4 % (0.0-1.8); Eosinophils # (Auto) 0.1 K/mm3 (0.0-0.4); Eosinophils % (Auto) 1.1 % (0.0-4.3); Hematocrit 31.2 % (35.5-45.6); Hemoglobin 10.2 gm/dl (11.8-15.2); Lymphocytes # (Auto) 0.7 K/mm3 (1.2-5.4); Lymphocytes % (Auto) 6.9 % (13.4-35.0); Mean Corpuscular HGB Conc 33 % (32-34); Mean Corpuscular Volume 88 fl (84-94); Monocytes # (Auto) 0.5 K/mm3 (0.0-0.8); Monocytes % (Auto) 4.9 % (0.0-7.3); Platelet Count 271 K/mm3 (140-440); Red Blood Count 3.56 M/mm3 (3.65-5.03); Red Cell Distribution Width 14.1 % (13.2-15.2)
--- NOTE | 2020-05-30 10:35 | XRay Report ---
CHEST 1 VIEW INDICATION: hypertension COMPARISON: May 12, 2020 FINDINGS: SUPPORT DEVICES: None. HEART / MEDIASTINUM: No significant abnormality. LUNGS / PLEURA: No significant pulmonary or pleural abnormality. No pneumothorax. ADDITIONAL FINDINGS: Large hiatal hernia IMPRESSION: 1. No acute cardiopulmonary disease Signer Name: Alberto Cleveland MD Signed: 05/30/2020 10:31 AM Workstation Name: [id number]
[2020-05-30 10:36] LABS: INR 0.91 (0.87-1.13)
[2020-05-30 10:50] LABS: Creatine Kinase MB 2.8 ng/mL (0.0-4.0)
[2020-05-30 10:52] LABS: Alanine Aminotransferase 11 units/L (7-56); Albumin 3.6 g/dL (3.9-5); BUN/Creatinine Ratio 9; Blood Urea Nitrogen 15 mg/dL (9-20); Calcium 8.5 mg/dL (8.4-10.2); Hemolysis Index 15
[2020-05-30 10:53] LABS: Bilirubin,Direct < 0.2 mg/dL (0-0.2)
--- NOTE | 2020-05-30 13:37 | Cat Scan Report ---
CT ABDOMEN AND PELVIS WITHOUT CONTRAST HISTORY: abd pain COMPARISON: None. TECHNIQUE: Axial CT images were obtained through the abdomen and pelvis without IV contrast. Sagittal and coronal reformatted images. All CT scans at this location are performed using CT dose reduction for ALARA by means of automated exposure control. FINDINGS: CT ABDOMEN: Lung Bases: Moderate to large hiatal hernia is noted. Heart size is normal. The visualized lung bases are clear. Liver: No significant abnormality. Biliary: No significant abnormality. Spleen: No significant abnormality. Unenlarged. Pancreas: No significant abnormality. Adrenals: No significant abnormality. Kidneys: No significant abnormality. 1 cm cyst in the superior left kidney is noted. Lymphatics: No lymphadenopathy. Vasculature: No significant abnormality. Bowel/Peritoneum: Moderate diverticulosis of the distal colon is evident. No evidence for acute infla mmation or obstruction. The remaining bowel loops are unremarkable. Normal appendix. CT PELVIS: : No significant abnormality. Osseous Structures: Mild degenerative changes in the lower lumbar spine. Additional Findings: A very small umbilical hernia containing fat is identified. IMPRESSION: No acute inflammatory process is appreciated. Moderate to large hiatal hernia. Diverticulosis of the distal colon. Signer Name: Enrico Bryant Jr, MD Signed: 05/30/2020 1:32 PM Workstation Name: [id number]
[2020-05-30] MEDS ORDERED: MORPHINE 2 MG/1 ML INJ IV ONE (14:06)
[2020-05-30] MEDS ORDERED: ONDANSETRON 4 MG/2 ML INJ IV ONE (14:06)
[2020-05-30 17:47] LABS: Bilirubin,Urine Negative (Negative); Color,Urine Yellow (Yellow)
[2020-05-30 17:48] LABS: Blood,Urine Negative (Negative); Mucus,Urine Few /HPF; Urobilinogen,Urine < 2.0 mg/dL (<2.0)
--- NOTE | 2020-05-31 00:45 | History and Physical Report ---
History of Present Illness Date of examination: 05/30/20 Date of admission: 05/30/20 13:37 Chief complaint: Passed out this a.m. Also right lower quadrant pain for 3 days History of present illness: 64-year-old male comes into the emergency room for passing out. His main complaint is right lower quadrant pain since the last admission but more so for the last 3 days. Pain is intermittent. Patient wants the pain to be resolved. Pain is about 8 on a 10 scale of 1-10. Patient apparently passed out this a.m. No chest pain no shortness of breath. No fever or chills. No exposure to coronavirus. Last admission was reviewed-- patient was transferred from [facility] emergency room to [place] for severe GI bleeding as we cannot. GI lab was not open. - Past Medical History --Hypertension: Yes --GERD: Yes Additional medical history: SLEEP APNEA. Several episodes of GI bleeding with prior transfusion - Surgical History Past Surgical History?: No - Social History Smoking Status: Current Every Day Smoker Substance Use Type: None Family history htn - Medications Home Medications: Home Medications Medication Instructions Recorded Confirmed Last Taken Type Meloxicam [Mobic] 15 mg PO QDAY 05/12/20 05/12/20 Unknown History amLODIPine [Norvasc] 10 mg PO DAILY 05/12/20 05/12/20 Unknown History traZODone [Desyrel] 100 mg PO QHS 05/12/20 05/12/20 Unknown History Review of Systems ROS: Stated complaint: ABD PAIN, WEAKNESS Other details as noted in HPI Constitutional: denies: chills, fever Eyes: denies: eye pain, eye discharge, vision change ENT: denies: ear pain, throat pain Respiratory: denies: cough, shortness of breath, wheezing Cardiovascular: denies: chest pain, palpitations Endocrine: no symptoms reported Gastrointestinal: abdominal pain (States he has been having persistent abdominal pain sectioning the right upper and lower quadrant.). denies: nausea, vomiting, diarrhea Genitourinary: denies: urgency, dysuria Musculoskeletal: denies: back pain, joint swelling, arthralgia Skin: denies: rash, lesions Neurological: denies: headache, weakness, paresthesias Psychiatric: denies: anxiety, depression Hematological/Lymphatic: denies: easy bleeding, easy bruising Medications and Allergies Allergies Allergy/AdvReac Type Severity Reaction Status Date / Time Penicillins AdvReac Unknown Verified 06/30/14 07:13 Sulfa (Sulfonamide AdvReac Unknown Verified 06/30/14 07:13 Antibiotics) Home Medications Medication Instructions Recorded Confirmed Last Taken Type Meloxicam [Mobic] 15 mg PO QDAY 05/12/20 05/30/20 05/29/20 History amLODIPine [Norvasc] 10 mg PO DAILY 05/12/20 05/30/20 05/29/20 History traZODone [Desyrel] 100 mg PO QHS 05/12/20 05/30/20 05/29/20 History Active Meds: Active Medications Morphine Sulfate (Morphine 2 Mg/1 Ml Inj) 2 mg IV Q6H PRN PRN Reason: Pain, Moderate (4-6) Exam - Constitutional Vitals: Temp Pulse Resp BP Pulse Ox 98.5 F 93 H 18 146/81 98 05/31/20 00:13 05/31/20 00:13 05/31/20 00:13 05/31/20 00:13 05/31/20 00:13 General appearance: Present: no acute distress, well-nourished - EENT Eyes: Present: PERRL ENT: hearing intact, clear oral mucosa - Neck Neck: Present: supple, normal ROM - Respiratory Respiratory effort: normal Respiratory: bilateral: CTA - Cardiovascular Heart rate: 78 Rhythm: regular Heart Sounds: Present: S1 & S2. Absent: rub, click - Extremities Extremities: pulses symmetrical, No edema Peripheral Pulses: within normal limits - Abdominal General gastrointestinal: Present: soft, non-tender, non-distended, normal bowel sounds Localized gastrointestinal: tender: RLQ Male genitourinary: Present: normal - Integumentary Integumentary: Present: clear, warm, dry - Musculoskeletal Musculoskeletal: gait normal, strength equal bilaterally - Psychiatric Psychiatric: appropriate mood/affect, intact judgment & insight - Neurologic Neurologic: CNII-XII intact, moves all extremities - Allied Health Allied health notes reviewed: nursing, case management HEART Score - HEART Score History: Moderately suspicious Age: 45-65 Risk factors: 1-2 risk factors Troponin: Troponin T < 0.010 ng/mL (0.00-0.029) 05/30/20 10:05 Troponin: < normal limit - Critical Actions Critical Actions: 0-3 pts:0.9-1.7%risk of adverse cardiac event.Candidate for discharge Results - Labs CBC & Chem 7: 05/30/20 10:05 05/30/20 10:05 Labs: Laboratory Last Values WBC 10.0 K/mm3 (4.5-11.0) 05/30/20 10:05 RBC 3.56 M/mm3 (3.65-5.03) L 05/30/20 10:05 Hgb 10.2 gm/dl (11.8-15.2) L 05/30/20 10:05 Hct 31.2 % (35.5-45.6) L 05/30/20 10:05 MCV 88 fl (84-94) 05/30/20 10:05 MCH 29 pg (28-32) 05/30/20 10:05 MCHC 33 % (32-34) 05/30/20 10:05 RDW 14.1 % (13.2-15.2) 05/30/20 10:05 Plt Count 271 K/mm3 (140-440) 05/30/20 10:05 Lymph % (Auto) 6.9 % (13.4-35.0) L 05/30/20 10:05 [place] % (Auto) 4.9 % (0.0-7.3) 05/30/20 10:05 Eos % (Auto) 1.1 % (0.0-4.3) 05/30/20 10:05 Baso % (Auto) 0.4 % (0.0-1.8) 05/30/20 10:05 Lymph # (Auto) 0.7 K/mm3 (1.2-5.4) L 05/30/20 10:05 [place]enzie # (Auto) 0.5 K/mm3 (0.0-0.8) 05/30/20 10:05 Eos # (Auto) 0.1 K/mm3 (0.0-0.4) 05/30/20 10:05 Baso # (Auto) 0.0 K/mm3 (0.0-0.1) 05/30/20 10:05 Seg Neutrophils % 86.7 % (40.0-70.0) H 05/30/20 10:05 Seg Neutrophils # 8.7 K/mm3 (1.8-7.7) H 05/30/20 10:05 PT 12.1 Sec. (12.2-14.9) L 05/30/20 10:05 INR 0.91 (0.87-1.13) 05/30/20 10:05 APTT 23.2 Sec. (24.2-36.6) L 05/30/20 10:05 Sodium 135 mmol/L (137-145) L 05/30/20 10:05 Potassium 4.1 mmol/L (3.6-5.0) 05/30/20 10:05 Chloride 102.8 mmol/L (98-107) 05/30/20 10:05 Carbon Dioxide 21 mmol/L (22-30) L 05/30/20 10:05 Anion Gap 15 mmol/L 05/30/20 10:05 BUN 15 mg/dL (9-20) 05/30/20 10:05 Creatinine 1.6 mg/dL (0.8-1.3) H 05/30/20 10:05 Estimated GFR 53 ml/min 05/30/20 10:05 BUN/Creatinine Ratio 9 % 05/30/20 10:05 Glucose 85 mg/dL (75-100) 05/30/20 10:05 Calcium 8.5 mg/dL (8.4-10.2) 05/30/20 10:05 Magnesium 2.00 mg/dL (1.7-2.3) 05/30/20 10:05 Total Bilirubin 0.20 mg/dL (0.1-1.2) 05/30/20 10:05 Direct Bilirubin < 0.2 mg/dL (0-0.2) 05/30/20 10:05 AST 13 units/L (5-40) 05/30/20 10:05 ALT 11 units/L (7-56) 05/30/20 10:05 Alkaline Phosphatase 67 units/L (35-129) 05/30/20 10:05 Total Creatine Kinase 77 units/L (55-170) 05/30/20 10:05 CK-MB (CK-2) 2.8 ng/mL (0.0-4.0) 05/30/20 10:05 CK-MB (CK-2) Rel Index 3.6 (0-4) 05/30/20 10:05 Troponin T < 0.010 ng/mL (0.00-0.029) 05/30/20 10:05 NT-Pro-B Natriuret Pep 663.8 pg/mL (0-900) 05/30/20 10:05 Total Protein 6.1 g/dL (6.3-8.2) L 05/30/20 10:05 Albumin 3.6 g/dL (3.9-5) L 05/30/20 10:05 Albumin/Globulin Ratio 1.4 % 05/30/20 10:05 Lipase 19 units/L (13-60) 05/30/20 10:05 Urine Color Yellow (Yellow) 05/30/20 Unknown Urine Turbidity Clear (Clear) 05/30/20 Unknown Urine pH 5.0 (5.0-7.0) 05/30/20 Unknown Ur Specific [place] 1.020 (1.003-1.030) 05/30/20 Unknown Urine Protein 30 mg/dl mg/dL (Negative) 05/30/20 Unknown Urine Glucose (UA) Negative mg/dL (Negative) 05/30/20 Unknown Urine Ketones Negative mg/dL (Negative) 05/30/20 Unknown Urine Blood Negative (Negative) 05/30/20 Unknown Urine Nitrite Negative (Negative) 05/30/20 Unknown Urine Bilirubin Negative (Negative) 05/30/20 Unknown Urine Urobilinogen < 2.0 mg/dL (<2.0) 05/30/20 Unknown Ur Leukocyte Esterase Negative (Negative) 05/30/20 Unknown Urine WBC (Auto) 1.0 /HPF (0.0-6.0) 05/30/20 Unknown Urine RBC (Auto) 3.0 /HPF (0.0-6.0) 05/30/20 Unknown U Epithel Cells (Auto) < 1.0 /HPF (0-13.0) 05/30/20 Unknown Urine Mucus Few /HPF 05/30/20 Unknown Blood Type O POSITIVE 05/30/20 10:10 Antibody Screen Negative 05/30/20 10:10 Short CBC 05/30/20 Range/Units 10:05 WBC 10.0 (4.5-11.0) K/mm3 Hgb 10.2 L (11.8-15.2) gm/dl Hct 31.2 L (35.5-45.6) % Plt Count 271 (140-440) K/mm3 BMP 05/30/20 10:05 Sodium 135 L Potassium 4.1 Chloride 102.8 Carbon Dioxide 21 L BUN 15 Creatinine 1.6 H Glucose 85 Calcium 8.5 Cardiac Enzymes 05/30/20 Range/Units 10:05 Total Creatine Kinase 77 (55-170) units/L CK-MB (CK-2) 2.8 (0.0-4.0) ng/mL Troponin T < 0.010 (0.00-0.029) ng/mL Liver Function 05/30/20 Range/Units 10:05 Total Bilirubin 0.20 (0.1-1.2) mg/dL Direct Bilirubin < 0.2 (0-0.2) mg/dL AST 13 (5-40) units/L ALT 11 (7-56) units/L Alkaline Phosphatase 67 (35-129) units/L Albumin 3.6 L (3.9-5) g/dL Urine 05/30/20 Range/Units Unknown Urine Color Yellow (Yellow) Urine pH 5.0 (5.0-7.0) Ur Specific [place] 1.020 (1.003-1.030) Urine Protein 30 mg/dl (Negative) mg/dL Urine Glucose (UA) Negative (Negative) mg/dL - Imaging and Cardiology CT scan - abdomen: report reviewed Imaging and Cardiology: Abdominal CAT scan Impression No acute inflammatory process is appreciated Moderate to large hiatal hernia Diverticulosis of the distal colon [place]/IV: Voiding Method Toilet Assessment and Plan Advance Directives: Yes (Full code) VTE prophylaxis?: Chemical Plan of care discussed with patient/family: Yes - Patient Problems (1) Autonomic dysfunction Current Visit: Yes Status: Acute Plan to address problem: Patient syncopized probably secondary to autonomic imbalance and volume depletion Syncope work-up in the form of echocardiogram and carotid duplex scan Echocardiogram to rule out aortic stenosis and hypertrophic cardiomyopathy (2) Acute abdominal pain Current Visit: Yes Status: Acute Plan to address problem: Recurrent abdominal pain Patient's main complaint is the right lower quadrant abdominal pain Possible abdominal wall hernia Will request surgical consult CT scan of the abdomen does not show any abdominal wall hernia-May need contrast (3) Hypertension Current Visit: Yes Status: Chronic Qualifiers: Hypertension type: essential hypertension Qualified Code(s): I10 - Essential (primary) hypertension Plan to address problem: Continue antihypertensives (4) Anemia Current Visit: Yes Status: Chronic Qualifiers: Anemia type: unspecified type Qualified Code(s): D64.9 - Anemia, unspecified Plan to address problem: Probably secondary to recent GI bleed Anemia work-up in the form of f iron folic acid and B12 levels Patient may need to be on ferrous sulfate (5) MARK (acute kidney injury) Current Visit: Yes Status: Acute Plan to address problem: IV fluids for now (6) DVT prophylaxis Current Visit: Yes Status: Acute Plan to address problem: On heparin GI prophylaxis
[2020-05-31] MEDS: MORPHINE 2 MG/1 ML INJ IV PRN ×3 (00:46→16:37)
[2020-05-31] MEDS ORDERED: oxyCODONE /ACETAMINOPHEN 5-325MG TAB PO PRN (00:56)
[2020-05-31] MEDS ORDERED: ACETAMINOPHEN 325 MG TAB PO PRN (00:56)
[2020-05-31] MEDS ORDERED: HYDROmorphone 1 MG/1 ML INJ IV PRN (00:56)
[2020-05-31] MEDS ORDERED: METOCLOPRAMIDE 10 MG/2 ML INJ IV PRN (00:56)
[2020-05-31] MEDS ORDERED: ONDANSETRON 4 MG/2 ML INJ IV PRN (00:56)
[2020-05-31] MEDS ORDERED: SODIUM CHLORIDE 0.9% 1000 ML 1,000 ML IV SCH (01:00)
[2020-05-31 01:52] LABS: Basophils # (Auto) 0.1 K/mm3 (0.0-0.1); Basophils % (Auto) 0.8 % (0.0-1.8); Eosinophils # (Auto) 0.3 K/mm3 (0.0-0.4); Eosinophils % (Auto) 2.9 % (0.0-4.3); Hematocrit 27.3 % (35.5-45.6); Hemoglobin 9.1 gm/dl (11.8-15.2); Lymphocytes # (Auto) 1.5 K/mm3 (1.2-5.4); Lymphocytes % (Auto) 14.7 % (13.4-35.0); Mean Corpuscular HGB Conc 33 % (32-34); Mean Corpuscular Volume 87 fl (84-94); Monocytes # (Auto) 0.8 K/mm3 (0.0-0.8); Monocytes % (Auto) 8.2 % (0.0-7.3); Platelet Count 225 K/mm3 (140-440); Red Blood Count 3.13 M/mm3 (3.65-5.03); Red Cell Distribution Width 14.4 % (13.2-15.2)
[2020-05-31 03:39] LABS: Alanine Aminotransferase 10 units/L (7-56); Albumin 3.5 g/dL (3.9-5); BUN/Creatinine Ratio 12; Blood Urea Nitrogen 17 mg/dL (9-20); Hemolysis Index 11
[2020-05-31 03:44] LABS: Creatine Kinase MB 1.8 ng/mL (0.0-4.0)
[2020-05-31 03:56] LABS: % Iron Saturation 5.02 %
[2020-05-31] MEDS ORDERED: FAMOTIDINE 20 MG/2 ML INJ IV SCH (10:00)
[2020-05-31] MEDS ORDERED: HEPARIN 5,000 UNIT/1 ML VIAL SUB-Q SCH (10:00)
[2020-05-31] MEDS ORDERED: amLODIPine 10 MG TAB PO SCH (10:00)
[2020-05-31 11:07] LABS: Creatine Kinase MB 1.9 ng/mL (0.0-4.0)
--- NOTE | 2020-05-31 11:17 | Electrocardiograph Report ---
[facility] Test Date: 2020-05-30 Test Time: 09:59:59 Pat Name: KASSIE AMRINO Department: Room: A456 Gender: M Digital Advisor: [id number] : [id number] Requested By: AICHA SOLORIO Order Number: [id number] Reading MD: Krishna Monroe Measurements Intervals [place] Rate: 64 P: 54 NV: 186 QRS: -42 QRSD: 114 T: -81 QT: 430 QTc: 443 Interpretive Statements Sinus rhythm Incomplete right bundle branch block Left ventricular hypertrophy Anterior Q waves, possibly due to LVH Abnrm T, consider ischemia, anterolateral lds No previous ECG available for comparison Electronically Signed On 05-31-2020 8:17:06 PDT by Krishna Monroe
--- NOTE | 2020-05-31 12:24 | Cat Scan Report ---
CT HEAD WITHOUT CONTRAST INDICATION / CLINICAL INFORMATION: syncope. TECHNIQUE: Axial imaging performed from the skull apex through the skull base without the use of cont rast. Sagittal and coronal reformatted images. All CT scans at this location are performed using CT dose reduction for ALARA by means of automated exposure control. COMPARISON: None available. FINDINGS: CEREBRAL PARENCHYMA: Mild hypoattenuation in the white matter is identified bilaterally consistent wi th chronic microvascular ischemic disease. This appears age appropriate. No acute parenchymal abnorma lity is appreciated. HEMORRHAGE: None. EXTRA-AXIAL SPACES: Normal in size and morphology for the patient's age. VENTRICULAR SYSTEM: Normal in size and morphology for the patient's age. MIDLINE SHIFT OR HERNIATION: None. CEREBELLUM / BRAINSTEM: No significant abnormality. CALVARIUM: No significant abnormality. ORBITS: Normal as visualized. PARANASAL SINUSES / MASTOID AIR CELLS: 1 cm polyp versus mucous retention cyst is noted in the right maxillary sinus. The remaining sinuses are clear. SOFT TISSUES of HEAD: No significant abnormality. ADDITIONAL FINDINGS: None. IMPRESSION: No acute intracranial abnormality. Mild nonspecific chronic white matter changes which appear appropr iate for this person's age. Mild right maxillary sinus disease as described. Signer Name: Enrico Bryant Jr, MD Signed: 05/31/2020 12:19 PM Workstation Name: [id number]
--- NOTE | 2020-05-31 12:46 | Discharge Summary ---
Providers - Providers Date of Admission: 05/30/20 13:37 Date of discharge: 05/31/20 Attending physician: ARIEL MUNGUIA 05/31/20 00:56 Consult to Physician [CONS] Routine Comment: Consulting Provider: JAYESH RODRIGUEZ Physician Instructions: Reason For Exam: Right lower quadrant pain-possible abdominal wall 05/31/20 11:35 Physical Therapy Evaluation and Treat [CONS] Routine Comment: Reason For Exam: Debility Primary care physician: LUÍS BELLE Hospitalization Condition: Stable Disposition: DC/TX-06 HOME [facility] Final Discharge Diagnosis (Prints w/discharge instructions): Syncope, likely vasovagal. Abdominal pain, no acute finding on CT abdomen pelvis. Mild MARK on CKD stage II, vasomotor nephropathy. Mild hyponatremia. Normocytic anemia, need further work-up as outpatient Time spent for discharge: 34 minutes Core Measure Documentation - Palliative Care Palliative Care/ Comfort Measures: Not Applicable - Core Measures Any of the following diagnoses?: none Exam - Constitutional Vitals: Temp Pulse Resp BP Pulse Ox 98.0 F 78 16 120/71 98 05/31/20 07:27 05/31/20 09:00 05/31/20 09:28 05/31/20 09:00 05/31/20 08:02 Plan Activity: advance as tolerated Weight Bearing Status: Weight Bear as Tolerated Diet: low fat, low salt Special Instructions: other (Avoid using NSAID) Additional Instructions: Repeat CBC and BMP in 1 week. Follow-up with PCP for possible EGD and colonoscopy Follow up with: PRIMARY CARE, [Referring] - 3-5 Days
[2020-05-31 16:43] VITALS: BP 147/82
--- NOTE | 2020-05-31 18:17 | Consultation ---
History of Present Illness Consult date: 05/31/20 Reason for consult: abdominal pain Chief complaint: Abdominal pain - History of present illness History of present illness: 64-year-old male with a past medical history of obesity, hypertension, recent ho spitalization for GI bleed who presents to the emergency room with complaints of syncopal episode. The patient states he was going to see his primary care physician and sustained a syncopal episode. EMS was called and he was brought to ER. He felt his BP was low and this led to the symptoms. He was recently seen in ER and transferred to [place] for urgent GI evaluation due to hematemesis. He was found to have gastric ulcers on EGD and started on PPI therapy. Today the patient complains of sharp intermittent right-sided abdominal pain. Pain is localized to the right upper quadrant and does not radiate. He states that the pain is been present on and off for the last 10+ years the pain can be exacerbated by certain types of foods. Patient states that he often eats a salty food type diet which can include greasy, fried, fatty foods. He admits to intermittent nausea and vomiting during these episodes. No fevers or chills. He has a known history of a hiatal hernia and diverticulosis. Patient states his last colonoscopy was in 2018 at [place]. No f/c Reflux symptoms well controlled with medication. Past History Past Medical History: hypertension, hyperlipidemia Past Surgical History: Other (EGD, colonoscopy) Social history: no significant social history Family history: no significant family history Medications and Allergies Allergies Allergy/AdvReac Type Severity Reaction Status Date / Time Penicillins AdvReac Unknown Verified 06/30/14 07:13 Sulfa (Sulfonamide AdvReac Unknown Verified 06/30/14 07:13 Antibiotics) Home Medications Medication Instructions Recorded Confirmed Last Taken Type Meloxicam [Mobic] 15 mg PO QDAY 05/12/20 05/30/20 05/29/20 History amLODIPine [Norvasc] 10 mg PO DAILY 05/12/20 05/30/20 05/29/20 History traZODone [Desyrel] 100 mg PO QHS 05/12/20 05/30/20 05/29/20 History traMADoL [Ultram 50 MG tab] 25 mg PO Q6HR PRN #20 tablet 05/31/20 Unknown Rx Active Meds: Active Medications Acetaminophen (Acetaminophen 325 Mg Tab) 650 mg PO Q4H PRN PRN Reason: Pain MILD(1-3)/Fever >100.5/[place] Amlodipine Besylate (Amlodipine 10 Mg Tab) 10 mg PO DAILY [facility] Last Admin: 05/31/20 09:00 Dose: 10 mg Documented by: Famotidine (Famotidine 20 Mg/2 Ml Inj) 20 mg IV BID [facility] Last Admin: 05/31/20 09:00 Dose: 20 mg Documented by: Heparin Sodium (Porcine) (Heparin 5,000 Unit/1 Ml Vial) 5,000 unit SUB-Q Q12HR [facility] Last Admin: 05/31/20 09:00 Dose: 5,000 unit Documented by: Hydromorphone HCl (Hydromorphone 1 Mg/1 Ml Inj) 0.5 mg IV Q3H PRN PRN Reason: Pain , Severe (7-10) Sodium Chloride (Nacl 0.9% 1000 Ml) 1,000 mls @ 75 mls/hr IV DIRECT [facility] Last Admin: 05/31/20 02:41 Dose: 75 mls/hr Documented by: Metoclopramide HCl (Metoclopramide 10 Mg/2 Ml Inj) 10 mg IV Q6H PRN PRN Reason: Nausea And Vomiting Morphine Sulfate (Morphine 2 Mg/1 Ml Inj) 2 mg IV Q6H PRN PRN Reason: Pain, Moderate (4-6) Last Admin: 05/31/20 16:37 Dose: 2 mg Documented by: Ondansetron HCl (Ondansetron 4 Mg/2 Ml Inj) 4 mg IV Q8H PRN PRN Reason: Nausea And Vomiting Oxycodone/Acetaminophen (Oxycodone /Acetaminophen 5-325mg Tab) 1 tab PO Q6H PRN PRN Reason: Pain, Moderate (4-6) Sodium Chloride (Sodium Chloride 0.9% 10 Ml Flush Syringe) 10 ml IV BID [facility] Last Admin: 05/31/20 09:01 Dose: 10 ml Documented by: Sodium Chloride (Sodium Chloride 0.9% 10 Ml Flush Syringe) 10 ml IV PRN PRN PRN Reason: LINE FLUSH Trazodone HCl (Trazodone 100 Mg Tab) 100 mg PO QHS [facility] Review of Systems All systems: negative (10 point ROS performed and negative except for that listed in HPI) Exam Vital Signs Temp Pulse Resp BP Pulse Ox 98.7 F 64 20 110/68 97 05/30/20 09:32 05/30/20 09:32 05/30/20 09:32 05/30/20 09:32 05/30/20 09:32 Narrative exam: Gen.: Awake, alert, oriented 3. No apparent distress ENT: Trachea midline. No lymphadenopathy. No scleral icterus or conjunctival pallor CV: S1, S2 present Respiratory: No audible wheezes Abdomen: Soft, nondistended, obese, mild tenderness to palpation of the right upper quadrant. No rebound, rigidity, guarding Extremities: No clubbing, cyanosis, edema Results - Labs 05/31/20 01:12 05/31/20 01:12 Abnormal lab results 05/31/20 05/31/20 05/31/20 Range/Units 01:12 01:12 01:12 RBC 3.13 L (3.65-5.03) M/mm3 Hgb 9.1 L (11.8-15.2) gm/dl Hct 27.3 L (35.5-45.6) % [place] % (Auto) 8.2 H (0.0-7.3) % Seg Neutrophils % 73.4 H (40.0-70.0) % Sodium 134 L (137-145) mmol/L Carbon Dioxide 20 L (22-30) mmol/L Creatinine 1.4 H (0.8-1.3) mg/dL Calcium 8.0 L (8.4-10.2) mg/dL Iron 13 L (49-181) ug/dL Total Protein 5.3 L (6.3-8.2) g/dL Albumin 3.5 L (3.9-5) g/dL Diabetes panel 05/31/20 05/31/20 Range/Units 01:12 01:12 Sodium 134 L (137-145) mmol/L Potassium 4.2 (3.6-5.0) mmol/L Chloride 102.2 (98-107) mmol/L Carbon Dioxide 20 L (22-30) mmol/L BUN 17 (9-20) mg/dL Creatinine 1.4 H (0.8-1.3) mg/dL Glucose 98 (75-100) mg/dL Hemoglobin A1c 4.9 (4-6) % Calcium 8.0 L (8.4-10.2) mg/dL AST 10 (5-40) units/L ALT 10 (7-56) units/L Alkaline Phosphatase 67 (35-129) units/L Total Protein 5.3 L (6.3-8.2) g/dL Albumin 3.5 L (3.9-5) g/dL Calcium panel 05/31/20 Range/Units 01:12 Calcium 8.0 L (8.4-10.2) mg/dL Albumin 3.5 L (3.9-5) g/dL Pituitary panel 05/31/20 Range/Units 01:12 Sodium 134 L (137-145) mmol/L Potassium 4.2 (3.6-5.0) mmol/L Chloride 102.2 (98-107) mmol/L Carbon Dioxide 20 L (22-30) mmol/L BUN 17 (9-20) mg/dL Creatinine 1.4 H (0.8-1.3) mg/dL Glucose 98 (75-100) mg/dL Calcium 8.0 L (8.4-10.2) mg/dL Adrenal panel 05/31/20 Range/Units 01:12 Sodium 134 L (137-145) mmol/L Potassium 4.2 (3.6-5.0) mmol/L Chloride 102.2 (98-107) mmol/L Carbon Dioxide 20 L (22-30) mmol/L BUN 17 (9-20) mg/dL Creatinine 1.4 H (0.8-1.3) mg/dL Glucose 98 (75-100) mg/dL Calcium 8.0 L (8.4-10.2) mg/dL Total Bilirubin < 0.20 (0.1-1.2) mg/dL AST 10 (5-40) units/L ALT 10 (7-56) units/L Alkaline Phosphatase 67 (35-129) units/L Total Protein 5.3 L (6.3-8.2) g/dL Albumin 3.5 L (3.9-5) g/dL - Imaging CT scan - abdomen: report reviewed, image reviewed CT scan - pelvis: report reviewed, image reviewed Assessment and Plan 64-year-old male with right upper quadrant abdominal pain Patient stable. Tolerating a diet. CT scan abdomen pelvis negative for acute intra-abdominal pathology. Of note he does have a moderate to large size hiatal hernia without evidence of obstruction. There is moderate left-sided diverticulosis without diverticulitis. Plan: Patient appears to have a chronic history of right-sided abdominal pain. His tory and physical is suggestive of possible gallbladder pathology. As the patient is stable, tolerating a diet, and is cleared for discharge from a medical standpoint, I would recommend having the patient follow-up with Dr. Verma and myself in surgery clinic as outpatient for further w/u of abd pain and possible GB pathology. I have recommended an u/s which can be performed as outpatient. Patient advised to avoid fried and fatty foods and to stick to a low-sodium, low-fat diet. P.o. pain control as needed. Patient is agreeable to the plan Thank you for this consultation. Please call with any questions or concerns. Evaluation and treatment of this patient was during the time of the national and state emergency arising from COVID19 coronavirus pandemic. Treatment and p rocedures performed meet the current and available best practice and guidelines for patient during the COVID pandemic.
[2020-05-31] MEDS ORDERED: traZODone 100 MG TAB PO SCH (22:00)
== END 2020-05-31 18:24 | disposition home health service (06) ==
LOC: ED 09:19 → 4A 13:37
PROVIDERS: ADMIT Internal Medicine; ATTEND Internal Medicine
DX: G90.9 Disorder of the autonomic nervous system, unspecified (principal); N17.9 Acute kidney failure, unspecified; R10.31 Right lower quadrant pain; R55 Syncope and collapse; R94.31 Abnormal electrocardiogram [ECG] [EKG]; I10 Essential (primary) hypertension; D64.9 Anemia, unspecified; K21.9 Gastro-esophageal reflux disease without esophagitis; G47.30 Sleep apnea, unspecified; F17.210 Nicotine dependence, cigarettes, uncomplicated; E78.5 Hyperlipidemia, unspecified; R53.81 Other malaise; Z98.890 Other specified postprocedural states
CPT/HCPCS: 36415; 70450; 71045; 74176; 80048; 80053; 80076; 81001; 82550; 82553; 82607; 82747; 82962; 83036; 83550; 83690; 83735; 83880; 84484; 85025; 85610; 85730; 86850; 86900; 86901; 93005; 93306; 96361; 96372; 96374; 96375; 96376; 97162; 99285; 99406; G0378; J1644; J2270; J2405; J7030

== ENCOUNTER 2020-10-09 03:57 | Emergency (ER) | payer MEDICARE ==
[2020-10-09 09:00] VITALS: BP 155/86
--- NOTE | 2020-10-09 09:45 | Emergency Department Report ---
- General Chief complaint: Allergic Reaction Stated complaint: MULTIPLE YELLOW JACKET STINGS Time Seen by Provider: 10/09/20 09:21 Source: patient Mode of arrival: Ambulatory Limitations: No Limitations - History of Present Illness Initial comments: 65-year-old -[place] male presents to the emergency room reporting that he was stung multiple times by yellow jackets on his left ear groin area left lower leg. Patient states he has an allergy to bee stings. Patient reports he was given epi and the EMS unit took Benadryl. complaint: insect bite/sting - Related Data Home Medications Medication Instructions Recorded Confirmed Last Taken Meloxicam [Mobic] 15 mg PO QDAY 05/12/20 05/30/20 05/29/20 amLODIPine [Norvasc] 10 mg PO DAILY 05/12/20 05/30/20 05/29/20 traZODone [Desyrel] 100 mg PO QHS 05/12/20 05/30/20 05/29/20 Previous Rx's Medication Instructions Recorded Last Taken Type traMADoL [Ultram 50 MG tab] 25 mg PO Q6HR PRN #20 tablet 05/31/20 Unknown Rx Cetirizine HCl 10 mg PO DAILY #10 tablet 10/09/20 Unknown Rx EPINEPHrine [Epipen 2-Cezar] 0.3 mg IJ ONCE PRN #2 auto.injct 10/09/20 Unknown Rx Prednisone [predniSONE 5 mg (6-Day 5 mg PO .TAPER #1 tab.ds.pk 10/09/20 Unknown Rx Pack, 21 Tabs)] Allergies Allergy/AdvReac Type Severity Reaction Status Date / Time Penicillins AdvReac Unknown Verified 06/30/14 07:13 Sulfa (Sulfonamide AdvReac Unknown Verified 06/30/14 07:13 Antibiotics) Abscess Boil HPI - HPI Chief Complaint: Allergic Reaction Stated Complaint: MULTIPLE YELLOW JACKET STINGS Time Seen by Provider: 10/09/20 09:21 Home Medications: Home Medications Medication Instructions Recorded Confirmed Last Taken Meloxicam [Mobic] 15 mg PO QDAY 05/12/20 05/30/20 05/29/20 amLODIPine [Norvasc] 10 mg PO DAILY 05/12/20 05/30/20 05/29/20 traZODone [Desyrel] 100 mg PO QHS 05/12/20 05/30/20 05/29/20 Previous Rx's Medication Instructions Recorded Last Taken Type traMADoL [Ultram 50 MG tab] 25 mg PO Q6HR PRN #20 tablet 05/31/20 Unknown Rx Cetirizine HCl 10 mg PO DAILY #10 tablet 10/09/20 Unknown Rx EPINEPHrine [Epipen 2-Cezar] 0.3 mg IJ ONCE PRN #2 auto.injct 10/09/20 Unknown Rx Prednisone [predniSONE 5 mg (6-Day 5 mg PO .TAPER #1 tab.ds.pk 10/09/20 Unknown Rx Pack, 21 Tabs)] Allergies/Adverse Reactions: Allergies Allergy/AdvReac Type Severity Reaction Status Date / Time Penicillins AdvReac Unknown Verified 06/30/14 07:13 Sulfa (Sulfonamide AdvReac Unknown Verified 06/30/14 07:13 Antibiotics) ED Review of Systems ROS: Stated complaint: MULTIPLE YELLOW JACKET STINGS Other details as noted in HPI ED Past Medical Hx - Past Medical History Previous Medical History?: Yes Hx Hypertension: Yes Hx GERD: Yes Additional medical history: SLEEP APNEA. Several episodes of GI bleeding with prior transfusion - Surgical History Past Surgical History?: No - Social History Smoking Status: Current Every Day Smoker - Medications Home Medications: Home Medications Medication Instructions Recorded Confirmed Last Taken Type Meloxicam [Mobic] 15 mg PO QDAY 05/12/20 05/30/20 05/29/20 History amLODIPine [Norvasc] 10 mg PO DAILY 05/12/20 05/30/20 05/29/20 History traZODone [Desyrel] 100 mg PO QHS 05/12/20 05/30/20 05/29/20 History traMADoL [Ultram 50 MG tab] 25 mg PO Q6HR PRN #20 tablet 05/31/20 Unknown Rx Cetirizine HCl 10 mg PO DAILY #10 tablet 10/09/20 Unknown Rx EPINEPHrine [Epipen 2-Cezar] 0.3 mg IJ ONCE PRN #2 auto.injct 10/09/20 Unknown Rx Prednisone [predniSONE 5 mg (6-Day 5 mg PO .TAPER #1 tab.ds.pk 10/09/20 Unknown Rx Pack, 21 Tabs)] ED Physical Exam - General Limitations: No Limitations General appearance: alert, in no apparent distress - Head Head exam: Present: atraumatic, normocephalic - Eye Eye exam: Present: normal appearance - ENT ENT exam: Present: mucous membranes moist - Neck Neck exam: Present: normal inspection - Respiratory Respiratory exam: Present: normal lung sounds bilaterally. Absent: accessory muscle use - Cardiovascular Cardiovascular Exam: Present: regular rate, normal rhythm. Absent: systolic murmur, diastolic murmur, rubs, gallop - GI/Abdominal GI/Abdominal exam: Present: soft, normal bowel sounds - Extremities Exam Extremities exam: Present: normal inspection - Back Exam Back exam: Present: normal inspection - Neurological Exam Neurological exam: Present: alert, oriented X3, normal gait - Psychiatric Psychiatric exam: Present: normal affect, normal mood - Skin Skin exam: Present: warm, rash, erythema, urticaria ED Course Vital Signs 10/09/20 10/09/20 05:19 08:57 Temperature 98 F Pulse Rate 71 74 Respiratory 18 16 Rate Blood Pressure 136/87 155/86 [Right] O2 Sat by Pulse 96 98 Oximetry ED Medical Decision Making - Medical Decision Making 65-year-old -[place] male presents to the emergency room reporting that he was stung multiple times by yellow jackets on his left ear groin area left lower leg. Patient states he has an allergy to bee stings. Patient reports he was given epi and the EMS unit took Benadryl. Patient was given Pepcid prednisone. Since patient had epi patient needed to be evaluated for 3 hours. Patient will discharge home with cetirizine prednisone and EpiPen. Patient is to follow-up with primary care provider Critical care attestation.: If time is entered above; I have spent that time in minutes in the direct care of this critically ill patient, excluding procedure time. ED Disposition Clinical Impression: Insect stings Qualifiers: Encounter type: initial encounter Injury intent: accidental or unintentional Qualified Code(s): T63.481A - Toxic effect of venom of other arthropod, accidental (unintentional), initial encounter Disposition: DC-01 TO HOME OR SELFCARE Is pt being admited?: No Does the pt Need Aspirin: No Condition: Stable Instructions: Insect Bite, Adult, [id number] Additional Instructions: Please take medication as prescribed. Use EpiPen as needed. Follow-up with your primary care provider. Prescriptions: Cetirizine HCl 10 mg PO DAILY #10 tablet EPINEPHrine [Epipen 2-Cezar] 0.3 mg IJ ONCE PRN #2 auto.injct PRN Reason: Anaphylaxis Prednisone [predniSONE 5 mg (6-Day Pack, 21 Tabs)] 5 mg PO .TAPER #1 tab.ds.pk Referrals: LUÍS BELLE MD [Primary Care Provider] - 3-5 Days Forms: Work/School Release Form(ED)
== END 2020-10-09 10:10 | disposition home or self-care (01) ==
LOC: ED 03:57
DX: T63.481A Toxic effect of venom of other arthropod, accidental (unintentional), initial encounter (principal); I10 Essential (primary) hypertension; K21.9 Gastro-esophageal reflux disease without esophagitis; F17.200 Nicotine dependence, unspecified, uncomplicated; G47.30 Sleep apnea, unspecified; Z88.0 Allergy status to penicillin; Z88.2 Allergy status to sulfonamides; Y92.89 Other specified places as the place of occurrence of the external cause
CPT/HCPCS: 99282